=== PATIENT | male | born 1965 | race Caucasian/White ===

== ENCOUNTER 2024-07-21 00:07 | Day surgery (SDC) | payer BC, SELFPAY ==
[2024-07-03 10:23] VITALS: BMI 26.5
[2024-07-21 08:55] VITALS: BP 139/93; PULSE 89; RESP 18; TEMP 36.4; O2SAT 97
[2024-07-21] MEDS: LACTATED RINGERS 1,000 ML 150 ML IV CONT (09:05)
--- NOTE | 2024-07-21 09:07 | SUR.PREOP ---
DR LUNA NOTIFIED PT ATE EGGS AND TOAST AT 0830 YESTERDAY, THEN HAD CLEAR LIQUIDS AND BOWEL PREP FOLLOWING, PT STATES STOOLS ARE CLEAR, DR WILL SEE PT, NO NEW ORDERS.
--- NOTE | 2024-07-21 09:24 | WPDANESEPPF ---
Anes - Initial Pre Proc Eval Procedure: Operation Date: 07/21/24 10:00 Proposed Procedures p Screening Colonoscopy - Cl Ramirez DO Date/Time: 07/21/24 09:24 Surgeon: Cl Ramirez DO Pre Op Diagnosis: screening for malignant neoplasm of colon Patient Data Age: 59 Gender: M Height: 1.78 m Weight: 88 kg Last Vital Signs Temp 36.4 C L 07/21/24 08:55 Pulse 89 07/21/24 08:55 Resp 18 07/21/24 08:55 BP 139/93 H 07/21/24 08:55 Pulse Ox 97 07/21/24 08:55 O2 Del Method Room Air 07/21/24 08:55 Allergies Allergy/AdvReac Type Severity Reaction Status Date / Time amoxicillin Allergy Unknown Rash Verified 07/21/24 08:53 Home Medications Medication Instructions Recorded Confirmed Type clomiphene citrate 50 mg tablet 25 mg PO DAILY 10/04/20 07/21/24 History cholecalciferol (vitamin D3) 125 125 mcg PO DAILY 07/03/24 07/21/24 History mcg (5,000 unit) tablet magnesium 200 mg tablet 200 mg PO DAILY 07/03/24 07/21/24 History Patient hx anesthesia problems: none Family hx anesthesia problems: none Results Review: All pre-operative results and documents have been reviewed as part of the pre-operative evaluation. [facility] Past Medical History Medical History Right lateral epicondylitis Family History Family History Father Hypertension Family history of cardiovascular disease Family history of pancreatic cancer Mother Hypertension Sibling Family history of cardiovascular disease Mother Hypertension Social History Social History Smoking status: Never smoker Second hand tobacco smoke exposure: No Alcohol intake: current Drinks per week: 6 Alcohol use details: Beers Substance use: never Substance use type: does not use Living arrangements: with family Occupation/Education: occupation Gender identity (if verbalized by the patient): Male Spiritual care concerns: No Anes - Eval Final PreProcedure Day of Procedure 07/21/24 09:24 Patient weight: overweight Heart: regular rate and rhythm Lungs: clear to auscultation Airway: Mallampati scale class II Neurological: alert and oriented Last oral intake: >/= 8 hours ASA classification: II Emergent: no Anesthetic plan: proceed Anesthesia type and monitoring: general GIVS and standard monitoring Results Review: All pre-operative results and documents have been reviewed as part of the pre-operative evaluation. Informed Consent: The patient's anesthetic plan and its attendant risks and benefits were discussed with the patient/family/POA. Questions were solicited and answers provided to the satisfaction of the patient/family/POA.
--- NOTE | 2024-07-21 09:40 | PM.IMHP ---
H&P: HPI History of Present Illness Date/Time: 07/21/24 09:40 Chief Complaint: Screening for colorectal cancer Narrative: this is a 59-year-old man who presents for colonoscopy. He has never had a colonoscopy before. He denies any hematochezia or melena. He denies any family history of colon cancer. Review of Systems Review of Systems: All systems reviewed & are unremarkable except as noted in HPI and below Constitutional: Constitutional: Denies chills, Denies fever(s), Denies headache(s) and Denies weight loss Eyes: Eyes: Denies change in vision ENT: Denies dizziness, Denies headache(s), Denies neck mass and Denies throat swelling Cardiovascular: Cardiovascular: Denies chest pain, Denies lightheadedness and Denies dyspnea Respiratory: Respiratory: Denies cough, Denies dyspnea and Denies wheezing Gastrointestinal: Gastrointestinal: Denies abdominal pain, Denies change in bowel habits, Denies nausea and Denies vomiting Genitourinary: Genitourinary: Denies hematuria and Denies dysuria Musculoskeletal: Musculoskeletal: Reports as per HPI Integumentary/Breasts: Skin/Breast: Reports as per HPI Neurologic: Denies dizziness and Denies headache(s) Allergic/Immunologic: Allergic/Immunologic: Denies throat swelling and Denies wheezing PMF Past Medical History Medical History Right lateral epicondylitis Family History Family History Father Hypertension Family history of cardiovascular disease Family history of pancreatic cancer Mother Hypertension Sibling Family history of cardiovascular disease Mother Hypertension Social History Social History Smoking status: Never smoker Second hand tobacco smoke exposure: No Alcohol intake: current Drinks per week: 6 Alcohol use details: Beers Substance use: never Substance use type: does not use Living arrangements: with family Occupation/Education: occupation Gender identity (if verbalized by the patient): Male Spiritual care concerns: No Meds Home Medications and Allergies Home Medications Medication Instructions Recorded Confirmed Type clomiphene citrate 50 mg tablet 25 mg PO DAILY 10/04/20 07/21/24 History cholecalciferol (vitamin D3) 125 125 mcg PO DAILY 07/03/24 07/21/24 History mcg (5,000 unit) tablet magnesium 200 mg tablet 200 mg PO DAILY 07/03/24 07/21/24 History Allergies Allergy/AdvReac Type Severity Reaction Status Date / Time amoxicillin Allergy Unknown Rash Verified 07/21/24 08:53 Vital Signs Vital Signs - 24 hr 07/21/24 08:55 Temperature 97.5 F L Pulse Rate 89 Respiratory Rate 18 Blood Pressure 139/93 H Pulse Oximetry 97 Oxygen Delivery Room Air Exam Const: General: no acute distress and alert Orientation/consciousness: patient oriented x3 HENMT: Head: normocephalic and atraumatic Ears: hearing grossly normal bilaterally Face/Nose/Sinus: Normal nares present Mouth: Yes Normal oral and palatal mucosa present Eyes: Periorbital: periorbital findings normal Sclera: sclerae normal EOM: EOMs intact bilaterally Neck: Neck: normal visual inspection, no lymphadenopathy and trachea midline Chest: Chest palpation & inspection: normal inspection of the chest Resp: Effort & Inspection: normal respiratory effort Auscultation: clear to auscultation bilaterally Cardio: Jugular venous distension: no JVD Rate: regular rate Rhythm: regular rhythm Heart sounds: S1 normal heart sound present and S2 normal heart sound present Peripheral pulses: Peripheral pulses 2+ throughout GI: Inspection: normal to inspection GI Palp: Yes Soft to palpation, No Tenderness to palpation present (GI), No Guarding due to palpation present (GI) and No Rebound tenderness present Percussion: Yes normal to percussion Auscultation: normal bowel sounds : General: Yes no CVA tenderness Back/Spine/Pelvis: Back: no CVA tenderness Neuro: General: patient oriented x3, no focal motor deficits and CN's II-XI intact bilaterally Cognition (Neuro): normal cognition Speech: normal speech Motor exam (neuro): 5/5 motor strength present throughout Extrem: General: capillary refill normal and no clubbing, cyanosis or edema Assessment and Plan Assessment and plan (1) Screening for colorectal cancer: Code(s): Z12.11 - Encounter for screening for malignant neoplasm of colon; Z12.12 - Encounter for screening for malignant neoplasm of rectum Status: Acute Assessment and Plan: I have recommended colonoscopy. I have discussed the procedure, risks, benefits, and alternatives. Questions were answered. Patient is agreeable to proceed.
[2024-07-21 09:56] VITALS: BP 108/68; PULSE 76; RESP 24; O2SAT 94
[2024-07-21 10:06] VITALS: BP 125/80; PULSE 70; RESP 24; O2SAT 94
[2024-07-21 10:16] VITALS: BP 125/81; PULSE 68; RESP 24; O2SAT 96
== END 2024-07-21 10:33 | disposition home or self-care (01) ==
PROVIDERS: PCP Family Medicine; Visit Provider Surgery
PROC: 0DJD8ZZ Inspection of Lower Intestinal Tract, Via Natural or Artificial Opening Endoscopic (ICD-10-PCS; CPT 45378; principal; 2024-07-21 10:00)
DX: Z12.11 Encounter for screening for malignant neoplasm of colon (principal); K57.30 Diverticulosis of large intestine without perforation or abscess without bleeding
CPT/HCPCS: 45378; J2003; J2704; J7120